=== PATIENT | male | born 1980 | race African-American/Black ===

== ENCOUNTER → 2018-08-25 12:19 | Outpatient (CLI) | payer BC, SELFPAY ==
[2018-08-21 15:17] VITALS: BMI 20.6
[2018-08-25 13:21] LABS: Absolute Lymphocyte Count 1.92 X10^3/ul (0.83-4.51); Absolute Neutrophil Count 1.7 X10^3/uL (2.0-7.7); Basophil# 0.01 X10^3/uL; Basophil% 0.3 % (0-1); Eosinophil# 0.05 X10^3/uL; Eosinophils% 1.3 % (0-5); Hematocrit 44.7 % (40-54); Lymphocyte # 1.92 X10^3/ul (4.0); Lymphocyte % 48.5 % (19-41); Mean Corp Hgb Conc 31.3 g/gl (32-36); Mean Corpuscular Hgb 25.8 pg (27.0-32.0); Mean Corpuscular Volume 82.3 fL (80-94); Monocyte# 0.26 X10^3/uL; Monocyte% 6.6 % (0-10); Neutrophil # 1.72 X10^3/uL (2.7-7.7); Neutrophil % 43.3 % (47-70); Platelet Count 238 K/mm3 (150-450); RBC Distribution Width CV 14.2 % (11.6-14.6); RBC Distribution Width SD 42.7 fl (35.1-43.9); Red Blood Count 5.43 M/mm3 (4.6-6.2)
[2018-08-25 13:24] LABS: POSITIVE COUNT NO; POSITIVE DIFFERENTIAL NO; POSITIVE MORPHOLOGY NO
[2018-08-25 13:59] LABS: Anion Gap 4 (5-15); BUN 16 mg/dL (7-18); BUN/Creat Ratio 15.4 RATIO (10-20); Calcium,Total 8.7 mg/dL (8.5-10.1); Chloride 103 mmol/L (98-107); Cholesterol 184 mg/dL (200); Creatinine, Serum 1.04 mg/dL (0.70-1.30); EST Glomerular Filtration Rate 86 mL/min (>60); Est Glom Filt Rate - Afr Amer 104 mL/min (>60); Glucose 84 mg/dL (74-106); High Density Lipoprotein 46 mg/dL; Potassium 4.1 mmol/L (3.5-5.1); Sodium Level 138 mmol/L (136-145); Triglycerides 165 mg/dL; Very Low Density Lipoprotein 33 mg/dL (5-40)
--- OUTSIDE RECORDS SUMMARY | 2018-10-11 07:03 | XMS RPT_ITS ---
:1980 Author Organization OHIP Care Team Providers Name Role Phone MONIKA MCCURDY (BRUSH MATERIAL PREPARER) Attending Unavailable Oleghe, Efewongbe Attending Unavailable Oleghe, Efewongbe Referring Unavailable Oleghe, Efewongbe Attending Unavailable Oleghe, Efewongbe Referring Unavailable Oleghe, Efewongbe Primary Care Unavailable Oleghe, Efewongbe Attending Unavailable Oleghe, Efewongbe Referring Unavailable PROBLEMS PROBLEMS DATE TYPE CONDITION / CODE ATTENDING STATUS SOURCE 01/31/2018 Unknown Z00.00 - Ole[place]ie, Active [place] Encounter for [facility] medical Repository examination without abnormal findings / Z00.00(ICD-10) PROCEDURES PROCEDURES No Procedure Records FoundRESULTS RESULTS CBC W/DIFF, AUTOMATED Collected: 08/25/2018 Status: F Source: [place] 12:27 PM [facility] REPOSITORY TYPE CODE TESTS RESULT OUT OF RANGE REFERENCE UNITS LAB L100.1000 4.4-11.0 K/mm3 Low WBC 4.0 LAB L100.1200 4.6-6.2 M/mm3 Normal RBC 5.43 LAB L100.1300 13.0-16.5 g/dl Normal HGB 14.0 LAB L100.1400 40-54 % Normal HCT 44.7 LAB L100.1500 80-94 fL Normal MCV 82.3 LAB L100.1600 27.0-32.0 pg Low MCH 25.8 LAB L100.1700 32-36 g/gl Low MCHC 31.3 LAB L100.1810 11.6-14.6 % Normal RDW CV 14.2 LAB L100.1820 35.1-43.9 fl Normal RDW SD 42.7 LAB L100.1900 150-450 K/mm3 Normal PLT 238 LAB L100.2000 6.2-12.0 fl Normal MPV 10.0 LAB L100.2100 47-70 % Low NEUT% 43.3 LAB L100.2200 19-41 % High LY% 48.5 LAB L100.2300 0-10 % Normal MONO% 6.6 LAB L100.2400 0-5 % Normal EO% 1.3 LAB L100.2500 0-1 % Normal BASO% 0.3 LAB L100.2550 0.0-0.9 % Normal IM GRAN % 0.000 Result Comment: IG% - Immature Granulocytes (promyelocytes, myelocytes and metamyelocytes) > 1% indicates that a LEFT SHIFT is Present. LAB L100.2620 2.0-7.7 X10 3/uL Low Absolute Neut 1.7 LAB L100.2720 0.83-4.51 X10 3/ul Normal Absolute Lymph 1.92 Performed By: #### L100.0100 #### [facility] [address] [place], [place], [address] BASIC METABOLIC Collected: 08/25/2018 Status: F Source: ALVA PROFILE ([facility]) 12:27 PM [facility] REPOSITORY Order Comment: Comments: fasting Comments: fasting TYPE CODE TESTS RESULT OUT OF RANGE REFERENCE UNITS LAB L501.0100 74-106 mg/dL Normal GLU 84 Result Comment: Please note revised GLUCOSE reference range effective 2017. LAB L501.1000 7-18 mg/dL Normal BUN 16 LAB L501.1100 0.70-1.30 mg/dL Normal CREAT,SERUM 1.04 Result Comment: The validity of the calculated GFR AND GFRAA in patients over 70 years has not been determined. Clinical correlation is essential. LAB L501.1110 >60 mL/min Normal EST GFR 86 Result Comment: Non- GFR Calc LAB L501.1115 >60 mL/min Normal EST GFR - AA 104 Result Comment: GFR Calc LAB L501.1300 10-20 RATIO Normal BUN/CRE 15.4 LAB L501.2200 8.5-10.1 mg/dL CA Normal 8.7 LAB L501.5300 136-145 mmol/L NA Normal 138 LAB L501.5600 3.5-5.1 mmol/L K Normal 4.1 LAB L501.5900 98-107 mmol/L CL Normal 103 LAB L501.6100 21.0-32.0 mmol/L Normal CO2 31.0 LAB L501.6200 5-15 Low GAP 4 Performed By: #### L500.2500, L500.4100 #### [facility] [address] [place], [address] LIPID PROFILE Collected: 08/25/2018 Status: F Source: [place] 12:27 PM [facility] REPOSITORY Order Comment: Comments: fasting Comments: fasting TYPE CODE TESTS RESULT OUT OF RANGE REFERENCE UNITS LAB L501.4900 200 mg/dL Normal CHOL 184 Result Comment: <200 mg/dL Desirable 200-240 mg/dL Borderline >240 mg/dL High Risk LAB L501.5000 mg/dL Normal TRIG 165 Result Comment: The drugs N-Acetylcysteine and Metamizole may falsely depress this assay. Serum Triglycerides Reference Interval Normal <150 mg/dL Borderline high 150 - 199 mg/dL High 200 - 499 mg/dL Very High > or = 500 mg/dL LAB L501.6400 mg/dL Normal HDL 46 Result Comment: The drugs N-Acetylcysteine and Metamizole may falsely depress this assay. Reference Range HDL <40 mg/dL Low HDL Cholesterol HDL >or= 60 mg/dL High HDL Cholesterol LAB L501.6500 0-130 mg/dL Normal LDL 105 LAB L501.6600 5-40 mg/dL Normal VLDL 33 Performed By: #### L500.2500, L500.4100 #### [facility] [address] [place], [address] INTERNAL MEDICINE Observed: 08/22/2018 Status: F Source: [place] OFFICE VISIT 4:46 PM [facility] REPOSITORY [facility] [address] [place] [address] [place] [address] OFFICE VISIT Date of Service: 08/21/18 MR#: [id number] Acct: [id number] Name: MARCO A URBINA Rep #: [id number] : 1980 Provider: Gisella Carolina MD Age/Sex: 38/M Location: BMS.BIM Status: Signed Intake Vital Signs08/21/18 Height 5 ft 6 in Intake Visit Reasons: F/U FROM NO SHOW 08/08/18 Chief Complaint: follow-up visit Is patient in pain?: No Allergies No Known Allergies Allergy (Unverified 01/31/18 11:29) Medications NK 01/31/18 [History Confirmed 01/31/18] PFSH Medical History No pertinent past medical history (Acute) Surgical History No pertinent past surgical history (Acute) Social History Smoking Status: Never smoker alcohol intake: never substance use type: does not use what type of physical activity do you participate in: other details: active work frequency: 5-6 times per week HPI HPI Chief Complaint: follow-up visit Details: MARCO A URBINA, is a 38 M who presents to the office today for follow-up on his blood pressure. Noted to be elevated during his last visit. However blood pressure in the office at this time is optimal. Denies any concerns at this time. ROS Const Constitutional: No body ache, chills, headache(s), weakness or fever(s) Eyes Eyes: No blurry vision, change in vision, eye pain or discharge ENT ENT: No headache(s), abnormal hearing, ear pain, ear pressure, tinnitus, dizziness/vertigo or balance problems Resp Respiratory: No cough, shortness of breath or wheezing Cardio Cardiology: No chest pain at rest, shortness of breath, dyspnea on exertion or palpitations Gastro GI: No abdominal pain or bloating Neuro Neurology: No headache(s), weakness or abnormal hearing Aller/Imm Allergy/Immunologic: No wheezing Exam Const General: cooperative, no acute distress, well developed Orientation: alert, awake, oriented x3 [facility] Head: atraumatic, normocephalic, normal to inspection Ears: hearing grossly normal bilaterally, TM's normal bilaterally Resp Effort AND Inspection: normal respiratory effort, able to speak in complete sentences Auscultation: Bilateral: Clear to Auscultation Cardio Rate: regular rate Rhythm: regular rhythm Heart Sounds: S1 normal, S2 normal Neuro General: alert, awake, oriented x3, moves all extremities, CN's II-XI intact bilaterally Extrem General: no clubbing, cyanosis or edema Psych Appearance: grossly normal Mental Status: mental status grossly normal Mood: congruent mood Affect: normal affect Assessment AND Plan 1. Elevated blood-pressure reading without diagnosis of hypertension R03.0 Plan Blood pressure optimal during this visit. Has not routinely checked it at home. Continue lifestyle and dietary modifications. Follow-up in 1 year or as needed. This note was generated with [employer] dictation software. It may contain incorrect words, spelling, and punctuation that were not noted in checking the note before signing. Coding Level of Care Code Off vis,est,level 2 Diagnoses Elevated blood-pressure reading without diagnosis of hypertension R03.0 08/22/18 1646 <Electronically signed by Gisella Carolina MD> Date Gisella Carolina MD Cosigner Signature: Date (if applicable) CC: PROGRESS Observed: 05/14/2018 Status: COMPLETED Source: [place] 3:[address] [facility] REPOSITORY O ID: [id number] Author: Monika Barnes (Tameka) Vinicio Service: (none) Author Type: Nurse Practitioner Type: Progress Notes Filed: 05/14/2018 4:00 PM Note Text: Subjective HPI Pt presents with neck muscle strain x 2 days. Denies known injury. States pain 5/10 on pain scale, aching, worse with movement. Denies any otc treatment for symptoms. Review of Systems Constitutional: Negative for chills, fever and malaise/fatigue. Eyes: Negative for blurred vision, double vision and pain. Cardiovascular: Negative for chest pain. Musculoskeletal: Positive for neck pain. Neurological: Positive for headaches (dull). Negative for dizziness, sensory change, speech change and focal weakness. No past medical history on file. No past surgical history on file. ALLERGIES Patient has no allergy information on record. MEDICATIONS cyclobenzaprine (FLEXERIL) 10 mg tablet Take 1 tablet by mouth three times daily as needed for up to 7 days. predniSONE (DELTASONE) 20 mg tablet Take 2 tablets by mouth once daily for 5 days. Take daily with food. No family history on file. Social History Substance Use Topics - Smoking status: Not on file - Smokeless tobacco: Not on file - Alcohol use Not on file Objective Physical Exam Constitutional: He is well-developed, well-nourished, and in no distress. HENT: Head: Normocephalic. Right Ear: External ear normal. Left Ear: External ear normal. Nose: Nose normal. Mouth/Throat: Oropharynx is clear and moist. Eyes: Pupils are equal, round, and reactive to light. Conjunctivae and EOM are normal. Neck: Normal range of motion. Neck supple. Muscular tenderness (left sternocleidomastoid muscle spasm noted) present. No spinous process tenderness present. No neck rigidity. No edema, no erythema and normal range of motion present. No Brudzinski's sign and no Kernig's sign noted. Nursing note and vitals reviewed. ASSESSMENT/PLAN: 1. Strain of sternocleidomastoid muscle, initial encounter - ICD9: 847.0, ICD10: S16.1XXA -Flexeril -Prednisone -localized ice intermittently x 2 days, followed by warm moist heat and massage -F/u with pcp in 3-5 days or sooner if symptoms are not improving or worsening Prescription instructions reviewed with patient as applicable. Patient advised if symptoms do not improve or if symptoms worsen sooner, to contact their primary care physician. Potential red flag symptoms discussed with the patient. Reviewed appropriate action plan to take if red flag symptoms occur. Patient agreeable to treatment plan. Monika Mooney APRN.OIL HEAT TECHNICIAN CNOV Observed: 05/14/2018 Status: COMPLETED Source: [place] 11:15 AM [facility] REPOSITORY Office Visit (WSTR) MARCO A URBINA ([id number]) 1980 M Date Time Provider Department 05/14/18 11:15 AM MONIKA MOONEY (TAMEKA) WSTR During your visit today, we recorded the following information about you: Monika Mooney APRN.CRISTIAN 05/14/2018 11:31 AM Signed NECK STRAIN GENERAL INFORMATION: Neck strains are caused when the muscles of the neck are stretched and pulled. This can happen in a car accident or when wrestling, but can also occur with minor activity. Sometimes people even wake up from sleep with a neck strain! INSTRUCTIONS: 1. Reduce your activity until the pain is improved; rest in bed if needed. 2. If you can stand it, applying ice for the first 24 - 48 hours may keep the swelling down. Place ice in a plastic bag and apply over a towel for 10 minutes at a time. Some people find this too uncomfortable, and prefer warm compresses. In this case, apply a warm heating pad or warm, moist towels for 10 minutes at a time. This can be continued after the initial 48 hours as well to speed healing and for comfort. 3. If the physician has not prescribed medication, you may take acetaminophen, ibuprofen, or naproxen [id number]. Read the instructions and follow any precautions, however. If the doctor has prescribed medication, take it exactly as recommended. Muscle relaxants and strong pain medications can make you drowsy, so avoid driving and operating dangerous machinery if you are taking any of these. 4. Sleeping without a pillow may help ease the pain. You also may sleep with a cervical pillow (a special pillow you can buy at a medical supply store). You also may use a small towel rolled up tightly (2 inches thick) and place it under your neck. CALL THE OFFICE OR GO TO THE EMERGENCY ROOM IF: 1. You have pain, numbness, tingling, or weakness of your arms, legs, face, or scalp. 2. You have shortness of breath, a hoarse voice, or difficulty swallowing. 3. You have increasing headaches or difficulty seeing. Monika Mooney APRN.CRISTIAN 05/14/2018 4:00 PM Signed Subjective HPI Pt presents with neck muscle strain x 2 days. Denies known injury. States pain 5/10 on pain scale, aching, worse with movement. Denies any otc treatment for symptoms. Review of Systems Constitutional: Negative for chills, fever and malaise/fatigue. Eyes: Negative for blurred vision, double vision and pain. Cardiovascular: Negative for chest pain. Musculoskeletal: Positive for neck pain. Neurological: Positive for headaches (dull). Negative for dizziness, sensory change, speech change and focal weakness. No past medical history on file. No past surgical history on file. ALLERGIES Patient has no allergy information on record. MEDICATIONS cyclobenzaprine (FLEXERIL) 10 mg tablet Take 1 tablet by mouth three times daily as needed for up to 7 days. predniSONE (DELTASONE) 20 mg tablet Take 2 tablets by mouth once daily for 5 days. Take daily with food. No family history on file. Social History Substance Use Topics - Smoking status: Not on file - Smokeless tobacco: Not on file - Alcohol use Not on file Objective Physical Exam Constitutional: He is well-developed, well-nourished, and in no distress. HENT: Head: Normocephalic. Right Ear: External ear normal. Left Ear: External ear normal. Nose: Nose normal. Mouth/Throat: Oropharynx is clear and moist. Eyes: Pupils are equal, round, and reactive to light. Conjunctivae and EOM are normal. Neck: Normal range of motion. Neck supple. Muscular tenderness (left sternocleidomastoid muscle spasm noted) present. No spinous process tenderness present. No neck rigidity. No edema, no erythema and normal range of motion present. No Brudzinski's sign and no Kernig's sign noted. Nursing note and vitals reviewed. ASSESSMENT/PLAN: 1. Strain of sternocleidomastoid muscle, initial encounter - ICD9: 847.0, ICD10: S16.1XXA -Flexeril -Prednisone -localized ice intermittently x 2 days, followed by warm moist heat and massage -F/u with pcp in 3-5 days or sooner if symptoms are not improving or worsening Prescription instructions reviewed with patient as applicable. Patient advised if symptoms do not improve or if symptoms worsen sooner, to contact their primary care physician. Potential red flag symptoms discussed with the patient. Reviewed appropriate action plan to take if red flag symptoms occur. Patient agreeable to treatment plan. Monika Mooney APRN.OIL HEAT TECHNICIAN Referring Provider: SELF [200] Allergies As of Date: 05/14/2018 (Not on File) Date Reviewed: Never Reviewed Primary Visit Diagnosis:Strain of sternocleidomastoid muscle, initial encounter [S16.1XXA] Order(s):cyclobenzaprine (FLEXERIL) 10 mg tabletTake 1 tablet by mouth three times daily as needed for up to 7 days.Disp: 21 tabletRfl: 0 predniSONE (DELTASONE) 20 mg tabletTake 2 tablets by mouth once daily for 5 days. Take daily with food.Disp: 10 tabletRfl: 0 Prescriptions as of 05/14/2018 Sig: CYCLOBENZAPRINE 10 MG TABLET Take 1 tablet by mouth three * PREDNISONE 20 MG TABLET Take 2 tablets by mouth once * Problem List As Of Date: 05/14/2018 (None) Other instructions from your clinician: NECK STRAIN GENERAL INFORMATION: Neck strains are caused when the muscles of the neck are stretched and pulled. This can happen in a car accident or when wrestling, but can also occur with minor activity. Sometimes people even wake up from sleep with a neck strain! INSTRUCTIONS: 1. Reduce your activity until the pain is improved; rest in bed if needed. 2. If you can stand it, applying ice for the first 24 - 48 hours may keep the swelling down. Place ice in a plastic bag and apply over a towel for 10 minutes at a time. Some people find this too uncomfortable, and prefer warm compresses. In this case, apply a warm heating pad or warm, moist towels for 10 minutes at a time. This can be continued after the initial 48 hours as well to speed healing and for comfort. 3. If the physician has not prescribed medication, you may take acetaminophen, ibuprofen, or naproxen [id number]. Read the instructions and follow any precautions, however. If the doctor has prescribed medication, take it exactly as recommended. Muscle relaxants and strong pain medications can make you drowsy, so avoid driving and operating dangerous machinery if you are taking any of these. 4. Sleeping without a pillow may help ease the pain. You also may sleep with a cervical pillow (a special pillow you can buy at a medical supply store). You also may use a small towel rolled up tightly (2 inches thick) and place it under your neck. CALL THE OFFICE OR GO TO THE EMERGENCY ROOM IF: 1. You have pain, numbness, tingling, or weakness of your arms, legs, face, or scalp. 2. You have shortness of breath, a hoarse voice, or difficulty swallowing. 3. You have increasing headaches or difficulty seeing. Prescriptions ordered this encounter Disp Refills Start End CYCLOBENZAPRINE 10 MG TABLET 21 t* 0 05/14/2018 05/21/2018 Route: ORAL Sig: Take 1 tablet by mouth three times daily as needed for up to 7 days. PREDNISONE 20 MG TABLET 10 t* 0 05/14/2018 05/19/2018 Route: ORAL Sig: Take 2 tablets by mouth once daily for 5 days. Take daily with food. Disposition: Return if symptoms worsen or fail to improve. Follow-up and Disposition History Recorded Letter Text Monika Mooney APRN.CNP Urgent Care [address] [facility] [place] [address] Dept: [phone] 05/14/2018 Marco A Urbina [address] [facility] [address] To Whom it May Concern: This is to certify that Marco A Urbina was seen at our office for medical care. Marco A may return to work on 05/15/2018. If you have any questions please feel free to call. Sincerely: Monika Mooney APRN.[facility] Encounter Status:Closed by MONIKA MOONEY on 05/14/18 INTERNAL MEDICINE Observed: 01/31/2018 Status: F Source: [place] OFFICE VISIT 4:48 PM [facility] [address] [place] [address] [place] [address] OFFICE VISIT Date of Service: 01/31/18 MR#: [id number] Acct: [id number] Name: MARCO A URBINA Rep #: [id number] : 1980 Provider: Gisella Carolina MD Age/Sex: 38/M Location: [facility] Status: Signed Intake Vital Signs01/31/18 Height 5 ft 6 in Intake Visit Reasons: EST CARE Chief Complaint: establish care Is patient in pain?: No Allergies No Known Allergies Allergy (Unverified 01/31/18 11:29) Medications NK [NK] 01/31/18 [History Confirmed 01/31/18] PFSH Medical History No pertinent past medical history (Acute) Surgical History No pertinent past surgical history (Acute) Social History Smoking Status: Never smoker alcohol intake: never substance use type: does not use what type of physical activity do you participate in: other details: active work frequency: 5-6 times per week HPI HPI Chief Complaint: establish care Details: MARCO A URBINA, is a 38yo M who presents to the office today to establish care. He has no acute complaints or any significant PMH. He denies tobacco or alcohol abuse. ROS Const Constitutional: No weight change, body ache, chills, fatigue, sleep problems, fever(s), change in appetite, snoring, weakness, frequent falls, headache(s) or excessive sweating Eyes Eyes: No change in vision, eye pain, light sensitivity or blurry vision ENT ENT: No headache(s), abnormal hearing, ear pain, tinnitus, nasal congestion, sore throat or neck pain Resp Respiratory: No snoring, cough, shortness of breath or wheezing Cardio Cardiology: No excessive sweating, chest pain at rest, chest pain with exertion, shortness of breath, dyspnea on exertion, palpitations, orthopnea or lightheadedness Gastro GI: No abdominal pain, change in bowel habits, constipation, diarrhea, vomiting, nausea/dyspepsia or cramping Genitourinary Male: No painful urination, urinary incontinence, urinary frequency, urinary urgency, blood in urine, testicle pain or other Musc Musculoskeletal: No neck pain, abnormal walking, joint pain, back pain, limited range of motion, numbness or tingling Skin Skin: No redness, dry skin, itching, lesions, wounds or rash Neuro Neurology: No weakness, frequent falls, headache(s), abnormal hearing, abnormal walking, numbness, tingling, abnormal speech, dizziness or memory loss Psych Psychiatric: No change in appetite, No memory loss, No anxiety, No depression, No Thoughts of harming yourself/Others Endo Endocrine: No fatigue, excessive sweating, cold intolerance, increased thirst/drinking, heat intolerance, flushing or increased hunger Aller/Imm Allergy/Immunologic: No wheezing, itchy eyes, hives or seasonal allergy symptoms Kade/Lymp Hematologic/Lymphatic: No easy bleeding, easy bruising or enlarged lymph nodes Exam Const General: cooperative, no acute distress, well developed Orientation: alert, awake, oriented x3 HENMT Head: atraumatic, normocephalic, normal to inspection Ears: hearing grossly normal bilaterally, TM's normal bilaterally Resp Effort AND Inspection: normal respiratory effort, able to speak in complete sentences Auscultation: Bilateral: Clear to Auscultation Cardio Rate: regular rate Rhythm: regular rhythm Heart Sounds: S1 normal, S2 normal Neuro General: alert, awake, oriented x3, moves all extremities, CN's II-XI intact bilaterally Extrem General: no clubbing, cyanosis or edema Psych Appearance: grossly normal Mental Status: mental status grossly normal Mood: congruent mood Affect: normal affect Assessment AND Plan 1. Encounter for preventive care Z00.00 Plan Mr. Urbina is doing well today. Blood pressure is slightly elevated and patient has no history of hypertension. Repeat Bp however better at 110/80mmHg ( manually ). Life style modification including dietary / sodium restriction and exercise encouraged. Labs ordered. Follow up in 6 months. Orders Orders: Plan Detail Follow Up 6 Months Coding Level of Care Code Off vis,new,prev 18-39yrs Diagnoses Encounter for preventive care Z00.00 01/31/18 8378 <Electronically signed by Gisella Carolina MD> Date Gisella Carolina MD Cosigner Signature: Date (if applicable) CC: ALLERGIES ALLERGIES DATE TYPE / CODE NAME / CODE REACTION SEVERITY SOURCE 01/31/2018 Drug No Known Unknown [facility] Allergy/4160 Allergies/F00 [facility] 10022(SNOMED [id number](RXNOR Repository CT) M) ENCOUNTERS ENCOUNTERS ADMIT/DISCHARGE ACCOUNT ADMITTING ENCOUNTER LOCATION SOURCE NUMBER CLASS 08/25/2018 [id number] Ambulatory [facility] ing:LAB Repository 08/21/2018/08/21/20 [id number] Ambulatory BMSBuilding:[place] [address] [place].[facility] Repository 05/14/2018/05/16/20 [id number] Ambulatory [address] Repository 01/31/2018/02/01/20 [id number] Ambulatory BMSBuilding:B [place] [address] [place].[facility] Repository PAYERS PAYERS ENCOUNTER GUARANTOR PAYER SUBSCRIBER SOURCE 08/25/2018 MARCO A O Primary MARCO A O [place] [id number] Insurance:ANTHEMPolic ADEOYEDOB: [facility] y [place]: [id number] [id number] Repository [address]Vkc: [phone] yessenia Date:[id number] [phone] () [address] [place] [address] [id number]: 08/25/2018 Secondary NOT GIVENUNK [place] Insurance:SELF PAY [facility] Number: Effective Repository Date:2018-08-25 08/21/2018 MARCO A Primary MARCO A [place] [id number] Insurance:ANTHEMPolic ADEOYEDOB: [facility] y [id number] [id number] Repository [address]Wjg: [phone] yessenia Date:1412-52-99JO [phone] () [address] [place] [address] 61675IZ: 08/21/2018 Secondary NOT GIVENUNK [place] Insurance:SELF PAY [facility] Number: Effective Repository Date:2018-08-14 01/31/2018 MARCO A Primary MARCO A [place] [id number] Insurance:ANTHEMPolic ADEOYEDOB: [facility] y [place]: [id number] [id number] Repository [id number]: [phone] yessenia Date:[id number] [phone] () [id number] [place] [id number]: 01/31/2018 Secondary NOT GIVENUNK [place] Insurance:SELF PAY [facility] Number: Effective Repository Date:2018-01-24
== END ==
PROVIDERS: Family Provider Internal Medicine; PCP Internal Medicine; Referring Provider Internal Medicine; Visit Provider Internal Medicine
DX: Z00.00 Encounter for general adult medical examination without abnormal findings (principal)
CPT/HCPCS: 36415; 80048; 80061; 85025

== ENCOUNTER → 2018-10-16 11:03 | Outpatient (CLI) | payer BC, SELFPAY ==
[2018-10-05 14:13] VITALS: BMI 20.6
--- NOTE | 2018-10-16 11:09 | US_ITS ---
STUDY: ABDOMINAL ULTRASOUND - RIGHT UPPER QUADRANT REASON FOR VISIT: Male, 38 years old. Right upper quadrant pain. TECHNIQUE: Ultrasound evaluation of the right upper quadrant was performed with real-time and static escobedo-scale imaging. TECHNICAL QUALITY: Adequate. COMPARISON: None. FINDINGS: Liver: The liver measures 13.7 cm. There is normal echogenicity of the liver. The bile ducts are within normal limits. There is hepatic color flow. The direction of portal flow is hepatopetal. There is no demonstrated mass lesion. Gallbladder: Normal distended gallbladder. The gallbladder wall measures 3.0 mm. There is a negative sonographic Hopkins's sign. There is no pericholecystic fluid. Echogenic layering material is seen along the dependent portion of the gallbladder. This may represent sludge or tiny gallstones. Common Bile Duct (C.B.D.): The common bile duct measures 1.2 mm. Pancreas: Normal size of the head, body and tail of the pancreas. There is normal echogenicity of the pancreas. There is no demonstrated pancreatic mass or cyst. Right Kidney: Normal size of the right kidney. The right kidney measures 10.9 cm x 5.1 cm x 3.7 cm. Normal renal cortex. The right cortex measures 1.1 cm. There is no demonstrated renal mass or cyst. There is no right hydronephrosis. US/Abdomen Limited IMPRESSION: Findings suggestive of a sludge or tiny gallstones along the dependent portion of the gallbladder lumen. Electronically Signed: Devon Skaggs MD at 15:54 EST , Service support ,
[2018-10-16 12:53] LABS: Absolute Lymphocyte Count 1.86 X10^3/ul (0.83-4.51); Basophil# 0.02 X10^3/uL; Basophil% 0.5 % (0-1); Eosinophil# 0.08 X10^3/uL; Eosinophils% 1.8 % (0-5); Hematocrit 44.3 % (40-54); Hemoglobin 13.9 g/dl (13.0-16.5); Lymphocyte # 1.86 X10^3/ul (4.0); Lymphocyte % 42.3 % (19-41); Mean Corp Hgb Conc 31.4 g/gl (32-36); Mean Corpuscular Hgb 25.6 pg (27.0-32.0); Mean Corpuscular Volume 81.4 fL (80-94); Mean Platelet Vol. 10.1 fl (6.2-12.0); Monocyte% 9.1 % (0-10); Neutrophil # 2.04 X10^3/uL (2.7-7.7); Neutrophil % 46.3 % (47-70); Platelet Count 240 K/mm3 (150-450); RBC Distribution Width CV 14.2 % (11.6-14.6); RBC Distribution Width SD 42.2 fl (35.1-43.9); Red Blood Count 5.44 M/mm3 (4.6-6.2); White Blood Count 4.4 K/mm3 (4.4-11.0)
[2018-10-16 12:54] LABS: POSITIVE COUNT NO; POSITIVE DIFFERENTIAL NO; POSITIVE MORPHOLOGY NO
[2018-10-16 13:14] LABS: ALB/GLOB Ratio 1.1 RATIO (0.9-2.4); AST(SGOT) 27 U/L (15-37); Alanine Aminotransfer ALT/SGPT 28 U/L (16-61); Albumin, Serum 4.3 g/dL (3.2-5.0); Alkaline Phosphatase 61 U/L (45-117); Anion Gap 6 (5-15); BUN 23 mg/dL (7-18); BUN/Creat Ratio 22.1 RATIO (10-20); Calcium,Total 8.8 mg/dL (8.5-10.1); Chloride 105 mmol/L (98-107); Creatinine, Serum 1.04 mg/dL (0.70-1.30); EST Glomerular Filtration Rate 86 mL/min (>60); Est Glom Filt Rate - Afr Amer 104 mL/min (>60); Globulin 3.8 g/dL (2.2-4.2); Glucose 71 mg/dL (74-106); Potassium 3.8 mmol/L (3.5-5.1); Protein, Total 8.1 g/dL (6.4-8.2); Sodium Level 138 mmol/L (136-145)
[2018-10-17 10:46] LABS: H. Pylori Antibody (IgG) 7.47 (0.00-0.79)
[2018-10-20 16:19] LABS: H. PYLORI STOOL AG Positive (Negative)
== END ==
PROVIDERS: Family Provider Internal Medicine; PCP Internal Medicine; Referring Provider Internal Medicine; Visit Provider Internal Medicine
DX: R10.11 Right upper quadrant pain (principal)
CPT/HCPCS: 36415; 76705; 80053; 85025; 86677

== ENCOUNTER → 2018-10-17 09:41 | Outpatient (CLI) | payer BC, SELFPAY ==
[2018-10-05 14:13] VITALS: BMI 20.6
== END ==
PROVIDERS: Family Provider Internal Medicine; PCP Internal Medicine; Referring Provider Internal Medicine; Visit Provider Internal Medicine
DX: Z00.00 Encounter for general adult medical examination without abnormal findings (principal)

== ENCOUNTER → 2019-05-09 17:21 | Outpatient (CLI) | payer BC, SELFPAY ==
[2019-04-30 14:38] VITALS: BMI 20.6
[2019-05-13 09:15] LABS: H. PYLORI STOOL AG Negative (Negative)
== END ==
PROVIDERS: Family Provider Internal Medicine; PCP Internal Medicine; Referring Provider Internal Medicine; Visit Provider Internal Medicine
DX: K25.9 Gastric ulcer, unspecified as acute or chronic, without hemorrhage or perforation (principal); B96.81 Helicobacter pylori [H. pylori] as the cause of diseases classified elsewhere